=== PATIENT | female | born 1935 | race Caucasian/White ===

== ENCOUNTER → 2022-07-27 | Outpatient (CLI) | payer MEDICARE ==
[~2022-07-27] MED LIST: CELEBREX100 MG PO; CETIRIZINE HCL10 MG PO; COZAAR100 MG PO; HYDRALAZINE HCL25 MG PO; NORVASC5 MG PO; OMEPRAZOLE20 MG PO; VITAMIN B12 PO; VITAMIN D325 MCG PO
== END ==
LOC: OPSV2 12:19
PROVIDERS: Anesthesiology
DX: Z01.818 Encounter for other preprocedural examination (principal)
CPT/HCPCS: 80048; 93005

== ENCOUNTER → 2022-08-01 | Day surgery (SDC) | payer MEDICARE ==
[~2022-08-01] VITALS: Ht 152.4 cm; Wt 90.7 kg
[2022-08-01 16:43] LABS: BODY FLUID SOURCE BRONCH RIGHT LUNG
== END | disposition home or self-care (01) ==
LOC: OR 09:09
PROVIDERS: Internal Medicine Pulmonary Disease
DX: R91.8 Other nonspecific abnormal finding of lung field (principal); I10 Essential (primary) hypertension; J45.909 Unspecified asthma, uncomplicated; K21.9 Gastro-esophageal reflux disease without esophagitis; E66.01 Morbid (severe) obesity due to excess calories; M19.90 Unspecified osteoarthritis, unspecified site; F41.9 Anxiety disorder, unspecified; F32.A Depression, unspecified; Z79.899 Other long term (current) drug therapy
CPT/HCPCS: 71046; 71250; 76000; 87015; 87070; 87116; 87205; 87206; 87252; 88172; 88177; 88341; 88342; 89051; J0171; J1100; J2405; J2704; J3010